=== PATIENT | male | born 1985 | race Two or more races ===

== ENCOUNTER 2023-09-20 20:47 | Emergency (ER) | payer MEDICAID, OTHER ==
[~2023-09-20] VITALS: Ht 162.6 cm; Wt 54.5 kg
[2023-09-20 21:01] VITALS: BP 129/89; PULSE 105; RESP 16; O2SAT 97
== END 2023-09-21 22:21 | disposition left against medical advice (07) ==
LOC: ER 20:47 → EDBD 20:47 → ER 09-21 03:05
DX: Z00.00 Encounter for general adult medical examination without abnormal findings (principal); Z79.899 Other long term (current) drug therapy; Z53.21 Procedure and treatment not carried out due to patient leaving prior to being seen by health care provider
CPT/HCPCS: 82962